=== PATIENT | female | born 1950 | race Hispanic/Latino ===

== ENCOUNTER → 2017-05-17 | Outpatient (CLI) | payer MEDICARE | END | disposition home or self-care (01) | LOC: OIH 11:03 | PROVIDERS: ATTEND Internal Medicine | DX: M54.16 Radiculopathy, lumbar region (principal); M25.551 Pain in right hip | CPT/HCPCS: 72100; 73502 ==

== ENCOUNTER → 2017-06-09 | Outpatient (CLI) | payer MEDICARE | END | disposition home or self-care (01) | LOC: RAH 12:32 | PROVIDERS: ATTEND Internal Medicine | DX: I73.9 Peripheral vascular disease, unspecified (principal) | CPT/HCPCS: 93925 ==

== ENCOUNTER → 2017-08-25 | Outpatient (CLI) | payer MEDICARE | END | disposition home or self-care (01) | LOC: OIH 15:22 | PROVIDERS: ATTEND Internal Medicine | DX: M47.895 Other spondylosis, thoracolumbar region (principal); J20.9 Acute bronchitis, unspecified | CPT/HCPCS: 71046 ==

== ENCOUNTER → 2019-06-27 | Outpatient (CLI) | payer MEDICARE | END | disposition home or self-care (01) | LOC: RAH 13:27 | PROVIDERS: ATTEND Internal Medicine | DX: E04.2 Nontoxic multinodular goiter (principal); E03.9 Hypothyroidism, unspecified | CPT/HCPCS: 76536 ==

== ENCOUNTER → 2020-08-13 | Outpatient (CLI) | payer OTHER, MEDICARE | END | disposition home or self-care (01) | LOC: RAH 11:10 | PROVIDERS: ATTEND Internal Medicine | DX: E03.9 Hypothyroidism, unspecified (principal) | CPT/HCPCS: 71046 ==

== ENCOUNTER → 2020-08-25 | Outpatient (CLI) | payer OTHER, MEDICARE | END | disposition home or self-care (01) | LOC: OIH 14:04 | PROVIDERS: ATTEND Internal Medicine | DX: M54.2 Cervicalgia (principal) | CPT/HCPCS: 72040 ==

== ENCOUNTER → 2022-02-26 | Outpatient (CLI) | payer OTHER | END | disposition home or self-care (01) | LOC: RAH 13:50 | PROVIDERS: ATTEND Internal Medicine | DX: I10 Essential (primary) hypertension (principal); M17.10 Unilateral primary osteoarthritis, unspecified knee; I73.9 Peripheral vascular disease, unspecified; M25.469 Effusion, unspecified knee; R09.89 Other specified symptoms and signs involving the circulatory and respiratory systems | CPT/HCPCS: 93306 ==

== ENCOUNTER → 2022-09-01 | Outpatient (CLI) | payer MEDICARE | END | disposition home or self-care (01) | LOC: RAH 07:33 | PROVIDERS: ATTEND Internal Medicine | DX: R10.2 Pelvic and perineal pain (principal); R19.00 Intra-abdominal and pelvic swelling, mass and lump, unspecified site | CPT/HCPCS: 76700; 76856 ==

== ENCOUNTER → 2023-06-10 | Outpatient (CLI) | payer MEDICARE | END | disposition home or self-care (01) | LOC: SHCH 14:01 | PROVIDERS: ATTEND Internal Medicine Cardiovascular Disease | DX: I87.2 Venous insufficiency (chronic) (peripheral) (principal) | CPT/HCPCS: 93970 ==

== ENCOUNTER → 2023-07-25 | Outpatient (CLI) | payer MEDICARE | END | disposition home or self-care (01) | LOC: OIH 15:38 | PROVIDERS: ATTEND Internal Medicine | DX: J45.909 Unspecified asthma, uncomplicated (principal) | CPT/HCPCS: 71046 ==

== ENCOUNTER → 2025-03-12 | Emergency (ER) | payer MEDICARE ==
[~2025-03-12] VITALS: Ht 157.5 cm; Wt 62.6 kg
[~2025-03-12] MED LIST: 0.9%NACL 1000ML 1,000 ML IV ONE
[2025-03-12 15:23] VITALS: BP 176/77; PULSE 77; RESP 16; TEMP 98
--- NOTE | 2025-03-12 15:52 | ERN ---
ED Note History of Present Illness Stated Complaint: NAUSEA VOMITING Chief Complaint: Nausea,Vomiting,Diarrhea Time Seen by MD: 15:25 Dictation: IN HIS A 74-YEAR-OLD FEMALE COMING IN WITH HER WITH COMPLAINTS OF DIFFUSE ANTERIOR CHEST PAIN NONRADIATING ONSET WAS YESTERDAY. IN ADDITION SHE STATES SHE HAS LOWER PELVIC PAIN WITH NAUSEA VOMITING DIARRHEA. NO FEVER NO CHILLS. SAW HER PRIMARY CARE DOCTOR YESTERDAY, AND HE DO LABS AND TOLD HER IT WAS PROBABLE UTI. NO MEDS WERE PROVIDED AND SHE CAME TO THE EMERGENCY ROOM TODAY FOR FURTHER EVALUATION AND TREATMENT. Allergies: Coded Allergies: No Known Allergies (Unverified Allergy, Unknown, 07/11/15) Past Medical History Past Medical History: Hypothyroid Surgical History: Other Surgical History Other: LEFT BREAST TUMOR REMOVAL Initial Vital Sign VS Vital Signs Date Time Temp Pulse Resp B/P (MAP) Pulse Ox O2 Delivery O2 Flow Rate FiO2 03/12/25 15:23 98.1 77 16 176/77 98 Room Air 0 ED Course ED Course Orders Procedure Category Date Status Time Cbc With Differential LAB 03/12/25 Transmitted 15:49 Troponin I High LAB 03/12/25 Transmitted Sensitivity 15:49 Urinalysis Profile LAB 03/12/25 Transmitted 15:49 12 Lead Ekg Tracing- EKG 03/12/25 Logged Technical 15:49 Ns 1000ml X1 Bolus PHA 03/12/25 Transmitted 16:00 Morphine 2mg Ivp X1 PHA 03/12/25 Transmitted Dose 16:00 Zofran 4mg Ivp X1 Dose PHA 03/12/25 Transmitted 16:00 Lipase LAB 03/12/25 Transmitted 15:49 Basic Metabolic Panel LAB 03/12/25 Transmitted 15:49 Vital Signs Date Time Temp Pulse Resp B/P (MAP) Pulse Ox O2 Delivery O2 Flow Rate FiO2 03/12/25 15:23 98.1 77 16 176/77 98 Room Air 0 DX & DISP Departure Condition: Stable Referrals: GHADA YANG MD (PCP) KAREN DOWNEY MANUFACTURING OPERATOR Mar 12, 2025 15:52
--- NOTE | 2025-03-12 16:11 | EKG ---
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
[2025-03-12 16:23] LABS: IMMATURE GRANULOCYTE ABSOLUTE 0.03 K/uL (0-1); NUCLEATED RED BLOOD CELLS 0.0 % (0.0-0.19); PLATELET COUNT (AUTO) 148 K/uL (130-400); RED BLOOD CELL COUNT(AUTO) 4.30 MIL/uL (4.00-5.50); RED CELL DISTRIBUTION WIDTH 11.9 % (11.0-15.5); WHITE BLOOD COUNT (AUTO) 5.3 K/uL (4.8-10.8)
[2025-03-12 16:32] LABS: APPEARANCE,URINE CLEAR (CLEAR); GLUCOSE, URINE (UA) NEGATIVE (NEGATIVE); LEUKOCYTE ESTERASE ,URINE 25 Leu/uL (NEGATIVE); NITRATE,URINE NEGATIVE (NEGATIVE); OCCULT BLOOD,URINE MODERATE (NEGATIVE)
[2025-03-12 16:32] LABS: CREATININE 0.6 mg/dL (0.5-1.0); GLOMERULAR FILTR. RATE CALC 94.0 mL/min (>90); GLUCOSE,RANDOM 98.0 mg/dL (70-105); SODIUM SERUM 130.0 mmol/L (136-145); UREA NITROGEN, BLOOD 14.0 mg/dL (7-18)
[2025-03-12 16:34] LABS: ADD UA MICROSCOPIC YES
[2025-03-12 16:41] LABS: SQUAMOUS EPITHELIAL CELL,UR FEW /HPF (0-2)
--- NOTE | 2025-03-12 20:35 | NUR ---
CALLED IN ER LOBBY, NO ANSWER
--- NOTE | 2025-03-12 21:47 | NUR ---
CALLED FOR PT IN LOBBY TO MOVE TO BED; NO ANSWER; PT NOT FOUND IN LOBBY
== END ==
LOC: EDH 15:21
DX: R07.89 Other chest pain (principal); R10.20 Pelvic and perineal pain unspecified side; R11.2 Nausea with vomiting, unspecified; R19.7 Diarrhea, unspecified; E03.9 Hypothyroidism, unspecified
CPT/HCPCS: 36415; 80048; 81001; 83690; 84484; 85025; 93005; 99284